=== PATIENT | female | born 2005 | race Caucasian/White ===

== ENCOUNTER 2025-08-27 15:24 | Emergency (ER) | payer OTHER, SELFPAY ==
[2025-08-27 15:30] VITALS: BP 107/73
[2025-08-27 15:56] LABS: Hematocrit 42.3 % (37.0-47.0); Hemoglobin 13.9 g/dL (12.0-16.0); Mean Corp Hgb Conc. 32.9 g/dL (33.0-37.0); Mean Corpuscular Volume 90.0 fL (81.0-99.0); Platelet Count 125 10^3/uL (130-400); Red Cell Dist. Width 13.2 % (11.5-14.5)
[2025-08-27 16:02] LABS: HCG, Serum Qualitative Screen Negative
[2025-08-27 16:09] LABS: COVID-19 Antigen Negative (Negative)
[2025-08-27 16:15] LABS: ALT (SGPT) 29 U/L (0-35); AST (SGOT) 47 U/L (14-36); Albumin 4.5 g/dl (3.5-5.0); Alkaline Phosphatase 70 U/L (38-126); Blood Urea Nitrogen 12 mg/dl (7-17); Calcium 9.3 mg/dl (8.4-10.2); Carbon Dioxide 27 mmol/L (22-30); Chloride 106 mmol/L (98-107); Glucose 103 mg/dl (70-99); Lipase 42 U/L (23-300); Potassium 3.7 mmol/L (3.5-5.1); Sodium 139 mmol/L (135-145); Total Protein 7.8 g/dl (6.3-8.2); eGFR > 60.00
[2025-08-27 16:20] LABS: Nucleated Red Blood Cells % 0 %
[2025-08-27 16:22] VITALS: BMI 20.1
--- NOTE | 2025-08-27 17:24 | ED.GENMED ---
History of Present Illness
General
Chief Complaint: Abdominal Symptoms
Source: patient
Exam Limitations: none
Time Seen by Provider: 08/27/25 17:18
History of Present Illness
History of Present Illness:
See MDM
Past History
Past History
ED Past Medical History: None
ED Past Surgical History: None
Social History
Tobacco: Non-smoker
Alcohol: None
Phy Exam
Physical Exam
Physical Exam:
See MDM
Course
Orders/Labs/Results
Orders:
Orders
08/27/25 15:33
Test Result ONCE
08/27/25 15:42
Comprehensive Metabolic Panel Urgent
HCG, Serum Qualitative Screen Urgent
Lipase Urgent
08/27/25 15:43
COVID-19 Antigen Urgent
Source: Nasal Swab
Complete Blood Count/With Diff Urgent
Influenza A+B Rapid Molecular Urgent
CROW Source: Nasal Swab
Specimen Description:
08/27/25 17:23
0.9% Sodium Chloride 1000 ml [Nss] 1,000 ml IV BOLUS
Ondansetron Injectable [Zofran] 4 mg IV NOW STA
Abnormal Lab Results
08/27/25 08/27/25
15:42 15:43
WBC 3.2 L 10^3/uL
(4.8-10.8)
MCHC 32.9 L g/dL
(33.0-37.0)
Plt Count 125 L 10^3/uL
(130-400)
MPV 10.6 H fL
(7.4-10.4)
Absolute Neuts (auto) 1.3 L 10^3/uL
(1.4-6.5)
Neutrophils % 39.3 L %
(42.2-75.2)
Lymphocytes % 54.3 H %
(20.5-51.1)
Glucose 103 H mg/dl
(70-99)
Total Bilirubin 1.4 H mg/dl
(0.2-1.3)
AST 47 H U/L
(14-36)
08/27/25 15:43
08/27/25 15:42
Vital Signs
Initial and Last Documented VS:
Initial Vital Signs
Temp Pulse Resp BP Pulse Ox
98.9 F 102 16 107/73 100
08/27/25 15:30 08/27/25 15:30 08/27/25 15:30 08/27/25 15:30 08/27/25 15:30
Last Documented Vital Signs
Temp Pulse Resp BP Pulse Ox
98.9 F 102 16 107/73 100
08/27/25 15:30 08/27/25 15:30 08/27/25 15:30 08/27/25 15:30 08/27/25 17:26
MDM/Problems Addressed
Differential Diagnosis Includes:
Note:
CHIEF COMPLAINT(S)
Nausea and vomiting.
HISTORY OF PRESENT ILLNESS
The patient is a 20-year-old female presenting with nausea and vomiting. She reports experiencing these symptoms since today, describing it as beginning 'out of the blue.' The patient has no abdominal pain upon light palpation. Urgent care referred
her for intravenous fluids. She has noticed similar symptoms among her roommates, suggesting a possible infectious source. There is no reported exacerbation when consuming food, and no mention of any existing medical conditions. The patient states
mild diarrhea. I discussed mild LFT elevation but she has no abd pain to suspect gallbladder pathology
EXTERNAL RECORDS REVIEWED
Referral from urgent care for intravenous fluid hydration.
PHYSICAL EXAM
General: Alert, no acute distress.
Skin: Warm, dry.
Head: Normocephalic, atraumatic
Neck: Appears supple, trachea midline.
Eyes, Ears, Nose, Mouth, and Throat: Dry mucous membranes. Posterior pharynx clear
Cardiovascular: No signs of cyanosis
Respiratory: Respirations are non-labored. Lungs clear
Abdomen: Non-distended and nontender
Musculoskeletal: No deformities
Neurological: No focal neurological deficit observed.
Psychiatric: Cooperative, appropriate mood and affect.
SUMMARY OF ENCOUNTER
The patient presented to the emergency department with nausea and vomiting without abdominal pain. Examination and history suggest a viral gastrointestinal infection, potentially supported by similar symptoms in her living environment. Elevated
liver enzymes were noted, thus excluding gallbladder pathology following an absence of localized pain. She is set to receive intravenous fluids and antiemetic medication.
PLAN
- Administer intravenous fluids for dehydration.
- Administer intravenous antiemetic medication.
- Monitor patients response to treatment.
- Consider follow-up care if symptoms persist or worsen.
MEDICAL DECISION MAKING
- Complexity of Data Reviewed: Chronic conditions affecting care and the elevated liver enzymes noted. Differential Diagnosis includes:
- Viral gastroenteritis
- Food poisoning
- Hepatitis (viral, drug-induced)
- Acute cholecystitis (unlikely due to absent right upper quadrant pain)
- Gastroesophageal reflux disease
- Peptic ulcer disease
- Pancreatitis
- Appendicitis
- Urinary tract infection
- Metabolic disorders
DATA
- Category 1: Independent review of records from urgent care indicating the need for intravenous fluids.
- Category 3: Management discussion regarding elevated liver enzymes and exclusion of gallbladder issues due to lack of specific symptoms.
RISK
Consideration of Admission/Observation: Escalation of care including admission/observation was considered, given the elevated liver enzymes. However, ultimately I feel the patient is safe for outpatient management with close follow-up. Reasoning:
Work-up reassuring, does not reveal any acute life/organ-threatening processes, patients symptoms well-controlled upon reevaluation, reexamination is reassuring, vitals are stable, patient agreeable with discharge, reliable for follow-up.
DIAGNOSIS
- Viral gastroenteritis (A08.4)
- Elevated liver enzymes, unspecified (R74.0)
- Nausea and vomiting (R11.2)
SUMMARY OF ENCOUNTER
The patient, a 20-year-old female, presented to the emergency department with nausea and vomiting suspected to be due to viral gastroenteritis. She reported similar symptoms among her roommates, suggesting a possible infectious source. Despite no
abdominal pain on examination, intravenous fluids and antiemetic medication (ondansetron) were administered. Following treatment, she described feeling significantly better and declined a second liter of intravenous fluids.
DISPOSITION
Discharge
ASSESSMENT
The patient is experiencing symptoms consistent with viral gastroenteritis. The absence of abdominal pain and response to fluid and antiemetic treatment aligns with this assessment.
EMERGENCY TREATMENTS ADMINISTERED
- Intravenous fluids
- Intravenous ondansetron
PLAN
- Discharge the patient with instructions for oral ondansetron as needed.
- Provide return precautions and advice on symptom management.
- Monitor symptoms and seek follow-up care if there is any worsening or persistence beyond a reasonable duration.
PATIENT EDUCATION AND COUNSELING
The patient was educated on the nature of viral gastroenteritis and the self-limiting course of the condition. Advised on the importance of hydration, dietary modifications, and when to seek further medical attention if symptoms do not improve or
worsen.
MEDICATION RECONCILIATION
Prescription medication advised: Ondansetron on an as-needed basis for nausea.
MEDICAL DECISION MAKING
- Complexity of Data Reviewed: Viral gastroenteritis suspected. Elevated liver enzymes noted but not indicative of gallbladder pathology.
- Data:
Category 1
External records reviewed indicated a referral for dehydration treatment via intravenous fluids.
Category 3
Discussion of management considered elevated liver enzymes, with no pressing gallbladder concerns due to absence of symptoms.
- Risk:
Consideration of Admission/Observation: Escalation of care including admission/observation was considered given the complexity and risk of the patients presenting complaint, exam findings, and/or their underlying comorbidities. However, ultimately I
feel the patient is safe for outpatient management with close follow-up. Reasoning: Work-up reassuring, does not reveal any acute life/organ threatening processes, patients symptoms well controlled upon reevaluation, reexamination is reassuring,
vitals are stable, patient agreeable with discharge, reliable for follow-up.
DIAGNOSIS
- Viral gastroenteritis (A08.4)
- Nausea and vomiting (R11.2)
*Pulse Oximetry
SaO2: 100
Oxygen Mode of Delivery: Room air
Patient hypoxic: no
*Critical Care Note
Total Time (30-74mins, 75-104mins- exclusive of procedures): Not Applicable
ED Attending Note
-
Portions of this chart may have been created with voice recognition software.� Occasional wrong word or��sound alike� substitutions may have occurred due to the inherent limitations of voice recognition software.
Discharge Plan
Departure
Patient Disposition: Home (Routine Discharge)
Date of Disposition: 08/27/25
Time of Disposition: 19:04
Patient with high blood pressure during this ER visit?: No
Discharge Problem:
Viral gastroenteritis
Instructions: Nausea and Vomiting, Adult (DC)
Prescriptions:
New
ondansetron 4 mg Tablet,Disintegrating
4 mg PO BIDPRN PRN (Reason: nausea/vomiting) Qty: 10 0RF
Referrals:
NONE,* [Family Provider, Internal Medicine]
Activity Restrictions/Additional Instructions:
Please return for any worsening symptoms.
You may return at any time if you have further concerns.
Please follow up with your doctor at the first available appointment, preferably this week.
Thank you for choosing [facility].
Interventions
Interventions:
*Risk Screen - Suicide Last Done: 08/27/25 16:22
*Neglect/Abuse Screening Last Done: 08/27/25 16:22
LR-Jluwkn-Pvhffxweig Assessment Last Done: 08/27/25 16:22
Discharge Date and Time
Print Language: GEORGIAN
[2025-08-27] MEDS: NSS 1000 IV (17:32)
[2025-08-27] MEDS: ZOFRAN 4 MG IV (17:32)
[2025-08-27 19:33] VITALS: BP 107/68
== END 2025-08-27 19:36 | disposition home or self-care (01) ==
LOC: EMR 15:24
PROVIDERS: Student in an Organized Health Care Education/Training Program; EMERGENCY PHYSICIAN Student in an Organized Health Care Education/Training Program
DX: A08.4 Viral intestinal infection, unspecified (principal); E86.0 Dehydration
CPT/HCPCS: 99284; 96374; 96361; 80053; 83690; 84703; 85025; 87502; 87811